=== PATIENT | male | born 1990 | race Hispanic/Latino ===

== ENCOUNTER 2021-07-09 11:58 | Emergency (ER) | payer SELFPAY ==
[~2021-07-09] VITALS: Ht 167.6 cm; Wt 72.6 kg
[~2021-07-09 11:58] MED LIST: FISH OIL300 MG PO
[2021-07-09] MEDS ORDERED: VITAMIN C500 M1 PO (12:41)
[2021-07-09] MEDS ORDERED: DOCUSATE SODIU100 MG PO (12:41)
[2021-07-09] MEDS ORDERED: TAMSULOSIN HCL0.4 MG PO (12:41)
[2021-07-09] MEDS ORDERED: TYLENOL EXTRA500 MG PO (12:42)
[2021-07-09] MEDS ORDERED: VITAMIN D350 MC3 PO (12:42)
[2021-07-09] MEDS ORDERED: CEFDINIR300 MG PO (13:12)
== END 2021-07-09 13:22 | disposition home or self-care (01) ==
LOC: ED 11:58
DX: N39.0 Urinary tract infection, site not specified (principal); E78.00 Pure hypercholesterolemia, unspecified; Z79.899 Other long term (current) drug therapy
CPT/HCPCS: 81001; 99283